=== PATIENT | female | born 1975 | race Caucasian/White ===

== ENCOUNTER 2020-10-21 10:05 | Observation (INO) ==
[2020-10-21] MEDS ORDERED: Isovue-370 500 ML BOTTLE IVP ONE (10:35)
[2020-10-21 11:44] LABS: Basophils % 0.8 %; Eosinophils # 0.5 K/mcL (0.0-0.6); Eosinophils % 9.2 %; Hematocrit 32.6 % (35.3-44.9); Hemoglobin 11.3 g/dL (11.5-15.4); Immature Granulocytes % 0.2 % (0-4); Lymphocytes % 19.3 %; Mean Corpuscular HGB Conc 34.7 g/dL (31.6-35.5); Mean Corpuscular Hemoglobin 31.8 pg (28.0-33.3); Mean Corpuscular Volume 91.8 fL (83.0-100.0); Mean Platelet Volume 9.3 fL (9.4-12.4); Monocytes # 0.7 K/mcL (0.0-1.3); Monocytes % 14.1 %; Neutrophils # 2.9 K/mcL (1.6-8.9); Platelet Count 229 K/mcL (140-400); Red Blood Count 3.55 M/mcL (3.82-4.97); Red Cell Distribution Width 12.7 % (11.5-14.5); Segmented Neutrophils % 56.4 %; White Blood Count 5.1 K/mcL (4.3-11.1)
[2020-10-21 11:52] LABS: INR 1.1; Prothrombin Time 12.4 Seconds (9.4-12.1)
[2020-10-21 11:54] LABS: Activated Partial Thrombo Time 34.7 Seconds (26.0-36.0)
[2020-10-21 12:06] LABS: BUN/Creatinine Ratio 22 (6-26); Blood Urea Nitrogen 13 mg/dL (6-20); Carbon Dioxide 27 mEq/L (23-29); Chloride 103 mEq/L (98-107); Glucose 105 mg/dL (70-105); Osmolality,Calculated 284 (280-300); Sodium 137 mEq/L (136-145); Troponin I < 0.03 ng/mL (< 0.04); eGFR For African Americans > 60 (> 60); eGFR For Non-African Americans > 60 (> 60)
[2020-10-21] MEDS ORDERED: *HR* HYDROmorphone (PF) 1 MG/ML SYRINGE IVP ONE (12:07)
[2020-10-21] MEDS ORDERED: *HR* Promethazine 25 MG/ML VIAL IM PRN (12:42)
[2020-10-21] MEDS ORDERED: Acetaminophen 325 MG TABLET PO PRN (12:42)
[2020-10-21] MEDS ORDERED: Naloxone 0.4 MG/ML INJ IVP PRN (12:42)
[2020-10-21] MEDS ORDERED: Ondansetron 4 MG/2 ML VIAL IVP PRN (12:42)
[2020-10-21] MEDS ORDERED: *HR* OxyCODONE Immed Rel 5 MG TABLET PO PRN (12:42)
[2020-10-21] MEDS ORDERED: *HR* HYDROcodone/Acet 5/325 mg TABLET PO PRN (12:42)
[2020-10-21] MEDS ORDERED: Melatonin 3 MG TABLET PO PRN (12:42)
[2020-10-21] MEDS ORDERED: Perflutren Lipid Microsphere 1.3 ML in 0.9 % Sodium Chloride 8.7 ML IVP PRN (13:08)
[2020-10-21 14:46] VITALS: BP 167/112
== END 2020-10-21 17:22 | disposition left against medical advice (07) ==
LOC: EMEROOARM 10:05 → 3NENU 10:05 → 3BNU 13:12
PROVIDERS: ADMIT Internal Medicine; ATTEND Internal Medicine